=== PATIENT | male | born 1960 | race Caucasian/White ===

== ENCOUNTER → 2016-11-22 | Outpatient (REF) | LOC: WSOH 10:54 | DX: Z02.89 Encounter for other administrative examinations (principal) ==

== ENCOUNTER 2019-11-16 16:50 | Emergency (ER) | payer OTHER ==
[~2019-11-16] VITALS: Ht 177.8 cm; Wt 78.3 kg
[2019-11-16 17:21] VITALS: TEMP 98.2
[2019-11-16] MEDS ORDERED: PRAVACHOL10 MG PO (17:27)
[2019-11-16] MEDS ORDERED: ZESTRIL 10MG10 MG PO (17:27)
[2019-11-16] MEDS ORDERED: PRILOSEC 20MG20 MG PO (17:28)
[2019-11-16] MEDS ORDERED: VIAGRA 25MG TAB25 MG PO (17:28)
[2019-11-16 18:30] LABS: HEMATOCRIT 48.2 % (42.0-52.0); HEMOGLOBIN 16.3 g/dl (13.5-18.0); MEAN CELL VOLUME 91 fl (80.0-100.0); MEAN CORPUSCULAR HEMOGLOBIN 31 pg (27.0-31.0); MEAN CORPUSCULAR HGB CONC 34 g/dl (33.0-37.0); MEAN PLATELET VOLUME 9.6 fl (7.4-10.4); PLATELET COUNT 261 K/mm3 (130-400); REDCELL DISTRIBUTION WIDTH-CV 11.9 % (11.5-14.5)
[2019-11-16 18:46] LABS: BAND 1 % (0-10); LYMPHOCYTE 5 % (20.0-51.0); NEUTROPHILS 92 % (42.0-75.2); PLATELET ESTIMATE NORMAL (NORMAL)
[2019-11-16 18:48] LABS: ALANINE AMINOTRANSFERASE 27 U/L (4-49); ALBUMIN 4.7 gm/dL (3.5-5.0); ALKALINE PHOSPHATASE 83 U/L (50-136); ANION GAP 10 mmol/L (7-16); AST,SGOT 26 U/L (15-37); BILIRUBIN,TOTAL 0.5 mg/dL (0.0-1.0); BLOOD UREA NITROGEN 13 mg/dL (9-20); CALCIUM 8.9 mg/dL (8.4-10.2); CARBON DIOXIDE 25 mmol/L (22-30); CHLORIDE 105 mmol/L (98-107); CREATININE, serum 1.04 (0.66-1.25); GLUCOSE 117 mg/dL (74-106); LIPASE 81 U/L (23-300); POTASSIUM 4.4 mmol/L (3.4-5.0); SODIUM 140 mmol/L (137-145); TOTAL PROTEIN 8.3 gm/dL (6.4-8.2)
[2019-11-16 18:49] LABS: C-REACTIVE PROTEIN < 0.5 mg/dL (0.0-0.9)
[2019-11-16 19:23] LABS: TROPONIN-I < 0.012 ng/mL (0.000-0.035)
[2019-11-16 20:14] LABS: COLLECTION METHOD CLEAN CATCH
[2019-11-16 20:24] LABS: PH 7 (5-8); SQUAMOUS EPITHELIAL None Seen /hpf; URINE APPEARANCE Clear; URINE BACTERIA None Seen /hpf; URINE BILIRUBIN Negative (NEGATIVE); URINE BLOOD Negative (NEGATIVE); URINE COLOR Straw; URINE GLUCOSE Negative (NEGATIVE); URINE KETONE Negative (NEGATIVE); URINE LEUKOCYTE ESTERASE Negative (NEGATIVE); URINE NITRATE Negative (NEGATIVE); URINE PROTEIN(semi-quant) Negative (NEGATIVE); URINE RBC 0-2 /hpf; URINE UROBILINOGEN Negative (NEGATIVE)
[2019-11-16 20:33] VITALS: BP 131/76; PULSE 73
== END 2019-11-16 20:35 | disposition home or self-care (01) ==
LOC: COL.ER 16:50
PROVIDERS: Emergency Medicine
DX: R10.11 Right upper quadrant pain (principal); R10.31 Right lower quadrant pain; E78.5 Hyperlipidemia, unspecified; I10 Essential (primary) hypertension
CPT/HCPCS: J7030